=== PATIENT | female | born 1955 | race Caucasian/White ===

== ENCOUNTER → 2016-09-10 | Outpatient (CLI) | payer OTHER ==
[~2016-09-10] MED LIST: ATOR20TA PO; CARV6.2512 PO; LACT1CAP37 PO; LISI-170 PO; LISINOPRIL PO; METF10002 PO; METFORMIN PO; MULT-516 PO; PERCOCET PO; SITA1TAB5 PO
[2016-09-10 11:17] LABS: HEMOGLOBIN 14.8 g/dL (11.7-16.4)
[2016-09-10 11:23] LABS: BLOOD UREA NITROGEN 15 mg/dL (7-18)
== END | disposition home or self-care (01) ==
LOC: STAR 10:12
PROVIDERS: ATTEND Internal Medicine Cardiovascular Disease
DX: Z01.818 Encounter for other preprocedural examination (principal); R94.39 Abnormal result of other cardiovascular function study; R79.1 Abnormal coagulation profile
CPT/HCPCS: 36415; 71020; 80048; 85025; 85610; 85730; 93005

== ENCOUNTER 2016-09-16 08:51 | Day surgery (SDC) | payer OTHER ==
[2016-09-10 10:39] VITALS: BP 184/118
[~2016-09-16] VITALS: Ht 165.1 cm; Wt 73.2 kg
[2016-09-16] MEDS ORDERED: SODIUM CHLORIDE 0.9% 1,000 ML IV SCH (09:10)
[2016-09-16] MEDS ORDERED: ASPIRIN 325 MG TABLET EC ONE (09:25)
[2016-09-16] MEDS ORDERED: ASPIRIN 325 MG TABLET EC PO ONE (09:30)
[2016-09-16] MEDS ORDERED: BISACODYL 5 MG EC TABLET PO PRN (09:30)
[2016-09-16] MEDS ORDERED: ONDANSETRON 2MG/ML, 2ML IVPush PRN (09:30)
[2016-09-16] MEDS ORDERED: BISACODYL 10 MG SUPP PR PRN (09:30)
[2016-09-16] MEDS ORDERED: ACETAMINOPHEN 325 MG TABLET PO PRN (09:30)
[2016-09-16] MEDS ORDERED: LIDOCAINE 2%, 20ML ONE (10:24)
[2016-09-16] MEDS ORDERED: FENTANYL PF 100 MCG/2ML ONE (10:24)
[2016-09-16] MEDS ORDERED: MIDAZOLAM 1 MG/ML, 5ML ONE (10:24)
[2016-09-16] MEDS ORDERED: ASPI-515 PO (11:47)
[2016-09-16] MEDS ORDERED: ZOLPIDEM 5MG TABLET PO PRN (21:00)
== END 2016-09-16 14:27 | disposition home or self-care (01) ==
LOC: CACL 08:51
PROVIDERS: ATTEND Internal Medicine Cardiovascular Disease
DX: I25.10 Atherosclerotic heart disease of native coronary artery without angina pectoris (principal); I10 Essential (primary) hypertension; E78.2 Mixed hyperlipidemia; E11.65 Type 2 diabetes mellitus with hyperglycemia; Z82.49 Family history of ischemic heart disease and other diseases of the circulatory system
CPT/HCPCS: 93458; C1894; J2250; J3010; J3490; Q9967

== ENCOUNTER → 2021-01-09 | Outpatient (CLI) | payer MEDICARE, OTHER ==
[~2021-01-09] MED LIST changes: +ASPI-963 PO; -LACT1CAP37 PO; +LACT1CAP47 PO
== END | disposition home or self-care (01) ==
LOC: CVU 12:40
PROVIDERS: ATTEND Internal Medicine
DX: I08.0 Rheumatic disorders of both mitral and aortic valves (principal); I10 Essential (primary) hypertension; E78.00 Pure hypercholesterolemia, unspecified; E11.9 Type 2 diabetes mellitus without complications; Z79.82 Long term (current) use of aspirin
CPT/HCPCS: 93306; 93356